=== PATIENT | female | born 1980 | race Hispanic/Latino ===

== ENCOUNTER 2017-08-04 21:45 | Emergency (ER) | payer SELFPAY ==
[2017-08-04 21:45] VITALS: BMI 20.9
[2017-08-04 21:56] VITALS: RESP 18; TEMP 98.9; O2SAT 98
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
[2017-08-04 22:38] VITALS: BP 130/80; PULSE 85
== END 2017-08-04 22:37 | disposition home or self-care (01) ==
LOC: ED 21:45
DX: F10.129 Alcohol abuse with intoxication, unspecified (principal)